=== PATIENT | male | born 1940 | race Caucasian/White ===

== ENCOUNTER → 2019-12-02 | Outpatient (CLI) | payer BC ==
--- NOTE | 2019-12-02 10:05 | RAD ---
EXAM: CT Abdomen and Pelvis without IV contrast CLINICAL HISTORY: Abdominal pain, hematuria. COMPARISON: none TECHNIQUE: Helical CT of the abdomen and pelvis was performed without the administration of IV contrast. Axial, coronal and sagittal reformatted images were generated. ---PQRS compliance statement - One or more of the following individualized dose reduction techniques were utilized for this study: 1. Automated exposure control 2. Adjustment of the mA and/or kV according to patient size 3. Use of iterative reconstruction technique--- FINDINGS: Lack of intravenous contrast limits evaluation of solid organs, vasculature, and lymph nodes. Lower chest: Linear and bandlike opacities lower lobes and lingula likely scarring/atelectasis. Coronary artery calcified lesions are seen. Abdomen and pelvis: Liver and biliary system: Subcentimeter hypodense left hepatic lobe lesion is too small to accurately characterize, measuring 6 mm. Gallbladder is normal. No biliary ductal dilatation. Spleen: Calcified granuloma are seen within the spleen. Pancreas: Unremarkable Adrenal glands: Unremarkable Kidneys: There is moderate to marked bilateral hydronephrosis and hydroureter with cortical thinning bilaterally. No definite renal lesion. No renal tract calculus. Lymph nodes/retroperitoneum: No abdominal or pelvic lymphadenopathy. Vessels: Aortic calcifications are seen. Aorta is normal in caliber. Bowel/Peritoneal cavity: Moderate colonic stool content is seen. No small or large bowel dilatation. No bowel obstruction. Appendix is normal. No abdominal or pelvic ascites. Abdominal wall: Small bilateral fat-containing inguinal hernias. Bladder: The bladder is markedly distended with eccentric bladder wall thickening and trabeculation. Bladder diverticulum at the dome of the bladder and right dorsal-lateral. Bladder is markedly distended measuring approximately 13.4 x 12 x 15.3 cm. Bones: Hip joint degenerative changes are seen. Degenerative changes of the spine are noted. No aggressive osseous lesion is seen. IMPRESSION: 1. Marked distention of the bladder can be correlated for possible voluntary or involuntary causes of urinary retention. Prostate is enlarged. Associated bilateral moderate to marked hydronephrosis and hydroureter, may be chronic given cortical thinning/atrophy. 2. Bladder diverticula and bladder trabeculation, possibly from chronic outlet obstruction. 3. Eccentric bladder wall thickening, underlying mass cannot be entirely excluded and can be further assessed by cystoscopy as clinically indicated. Electronically signed by: Scott Vences MD (12/02/2019 10:02 AM) [place] [id number]
== END ==
LOC: CT 08:26
PROVIDERS: ATTEND Urology
DX: K40.90 Unilateral inguinal hernia, without obstruction or gangrene, not specified as recurrent (principal); N40.0 Benign prostatic hyperplasia without lower urinary tract symptoms; N32.3 Diverticulum of bladder; R31.29 Other microscopic hematuria; D73.89 Other diseases of spleen; M16.0 Bilateral primary osteoarthritis of hip; R33.9 Retention of urine, unspecified
CPT/HCPCS: 74176